=== PATIENT | female | born 1960 | race Caucasian/White ===

== ENCOUNTER 2016-10-10 12:14 | Day surgery (SDC) | payer OTHER ==
[~2016-10-10] VITALS: Ht 160 cm; Wt 66.0 kg
[~2016-10-10 12:14] MED LIST: HYDR-906 PO
[2016-10-10] MEDS ORDERED: HCTZ (13:04)
[2016-10-10 13:05] VITALS: Ht 160 cm; Wt 66.0 kg
[2016-10-10 13:18] VITALS: BP 128/64; PULSE 55; RESP 18
--- NOTE | 2016-10-10 14:22 | OPPN ---
Date/Time of Note Date/Time of Note DATE: 10/10/16 TIME: 14:19 Operative Report Preoperative Diagnosis Rectal bleeding history of breast CA Postoperative Diagnosis Essentially normal colonoscopy Operation/Procedure Performed screening colonoscopy Provider: RAGHU FOX MD Anesthesia Type: moderate sedation (versed 3mg/fentanyl 100 mcg) Estimated blood loss: none Transfusion Required: no Specimen: none Grafts/Implants: none Complications: no RAGHU FOX MD Oct 10, 2016 14:22
[2016-10-10] MEDS ORDERED: FENTAnyl 50 MCG/ML VIAL ONE (14:23)
[2016-10-10] MEDS ORDERED: MIDAZOLAM 1 MG/ML 2 ML INJ ONE ×2 (14:23)
[2016-10-10 14:44] VITALS: BP 117/62; PULSE 49; RESP 14
--- NOTE | 2016-10-10 20:39 | GILP ---
DATE OF PROCEDURE: 10/10/2016 PREOPERATIVE DIAGNOSIS: History of rectal bleeding and colon carcinoma. PROCEDURE: Colonoscopy up to cecum. POSTOPERATIVE DIAGNOSIS: Essentially normal. DESCRIPTION OF PROCEDURE: The patient was put in left lateral decubitus. After obtaining informed consent, was sedated, monitored, oximetry, EKG, blood pressure. I very carefully advanced an Olympus video pediatric colonoscope all the way to the cecum. The ileocecal valve identified. Cecum, ascending colon, transverse colon, descending colon, sigmoid colon, rectum including retroflexion was normal. Postoperatively the patient had no complication. PLAN: Will be to advise her to follow up with you and repeat colonoscopy in 10 years. Dictated By: Michele Garsia MD /albert/herberth /Document#: [id number] ; Dr. Jg Lewis
== END 2016-10-10 16:31 | disposition home or self-care (01) ==
LOC: GIL 12:14
PROVIDERS: ATTEND Internal Medicine
DX: Z12.11 Encounter for screening for malignant neoplasm of colon (principal); Z85.3 Personal history of malignant neoplasm of breast
CPT/HCPCS: 45378; J2250; J3010; Z7610